=== PATIENT | male | born 1955 | race Caucasian/White ===

== ENCOUNTER 2019-06-15 07:49 | Outpatient (CLI) | payer BC ==
[2019-06-15 08:27] LABS: HB2 TOTAL 14.9 g/dL; HEMOGLOBIN A1C 0.59 g/dL; HEMOGLOBIN A1C % 5.8 % (4.6-6.2)
[2019-06-15 08:28] LABS: ALBUMIN 4.4 g/dL (3.2-5.5); ALBUMIN/GLOBULIN RATIO 1.8 (1.0-2.2); ALKALINE PHOSPHATASE 62 IU/L (42-121); ALT ALANINE AMINOTRANSFERASE 22 IU/L (10-60); AST ASPARTATE AMINOTRANSFERASE 22 IU/L (10-42); BUN - BLOOD UREA NITROGEN 18 mg/dL (6-20); CALCIUM 8.7 mg/dL (8.5-10.3); CARBON DIOXIDE - CO2 27 mmol/L (21-32); CHLORIDE 102 mmol/L (101-111); CHOL/HDL RATIO 4.8 (<5.0); CHOLESTEROL 155 mg/dL; GFR - MDRD 76 (>89); GLUCOSE 114 mg/dL (70-100); HDL CHOLESTEROL 32 mg/dL; LDL CHOLESTEROL,CALCULATED 81 mg/dL; LDL/HDL RATIO 2.5 (<3.6); SODIUM 139 mmol/L (135-145); TOTAL PROTEIN 6.9 g/dL (6.7-8.2); VLDL CHOLESTEROL 42 mg/dL
== END 2019-06-15 07:50 | disposition home or self-care (01) ==
LOC: LAB 07:49
PROVIDERS: ATTEND Internal Medicine
DX: E29.1 Testicular hypofunction (principal); R73.02 Impaired glucose tolerance (oral); E78.5 Hyperlipidemia, unspecified
CPT/HCPCS: 36415; 80053; 80061; 83036; 83721; 84403

== ENCOUNTER 2020-03-01 10:57 | Outpatient (CLI) | payer BC ==
[2020-03-01 11:38] LABS: HB2 TOTAL 16.1 g/dL; HEMOGLOBIN A1C 0.68 g/dL
== END 2020-03-01 10:58 | disposition home or self-care (01) ==
LOC: LAB 10:57
PROVIDERS: ATTEND Internal Medicine
DX: E29.1 Testicular hypofunction (principal); R73.02 Impaired glucose tolerance (oral); Z11.59 Encounter for screening for other viral diseases
CPT/HCPCS: 36415; 83036; 84403

== ENCOUNTER 2020-05-31 13:40 | Outpatient (CLI) | payer BC | END 2020-05-31 13:41 | disposition home or self-care (01) | LOC: LAB 13:40 | PROVIDERS: ATTEND Internal Medicine | DX: E29.1 Testicular hypofunction (principal); Z12.5 Encounter for screening for malignant neoplasm of prostate; N52.9 Male erectile dysfunction, unspecified | CPT/HCPCS: 36415; 84153 ==

== ENCOUNTER 2020-06-14 08:08 | Outpatient (CLI) | payer BC | END 2020-06-14 08:09 | disposition home or self-care (01) | LOC: LAB 08:08 | PROVIDERS: ATTEND Internal Medicine | DX: R53.83 Other fatigue (principal) | CPT/HCPCS: 36415; 82533; 84443 ==

== ENCOUNTER 2020-07-26 10:04 | Outpatient (CLI) | payer BC ==
--- NOTE | 2020-07-26 10:54 | SLEEP CARE CONSULTATION ---
Information from patient questionnaire entered by Halima Mcginnis. I have reviewed and concur with the information entered by Halima Mcginnis. This document represents the service I personally performed and the decisions made by me, Silva Sweeney ARNP. History of Present Illness Service Date and Time: 07/26/2020 1004 Reason for Visit: New patient, Previously diagnosed sleep apnea, sleep apnea on CPAP therapy Chief Complaint: reports: Snoring, Observed pauses in breathing, Frequent awakenings at night. denies: Insomnia, Unrefreshed sleep, Excessive daytime sleepiness, Fatigue Date of Onset: 15 years Usual bedtime: 11 pm Time it takes to fall asleep: 15-20 minutes Snores at night: Yes Observed to quit breathing while asleep: Yes Sleeps alone due to snoring: No Reasons for waking at night: denies: Choking, Snoring, Gasping for air Toss, Turn, or Twitch while sleeping: Yes Recalls having dreams: No Usually gets out of bed at: 7-francis am Feels refreshed in the morning: Yes Morning headache: No Sleepy or fatigued during the day: No Ever fallen asleep while driving: No Takes day naps: No Dreams during day naps: No Prior sleep studies: No Additional HPI information: CHRISTIAN CARRASQUILLO was diagnosed to have unknown, AHI unknown, obstructive sleep apnea-hypopnea syndrome and comes in to establish care today for CPAP therapy. He has been using the CPAP therapy for about 10 years. He states his machine needs to be replaced but [facility] told him he did not have a sleep study on file, so they could not get him a new machine. Thus he is here to establish for care. - Parasomnia Symptoms Ever been unable to move upon waking from sleep: No Walks in sleep: No Talks in sleep: No Ever acted out dreams in sleep: No Ever felt weak in the knees when startled or emotional: No Bothered by creepy, crawly, restless sensations in legs: No Problems with memory or concentration: Yes CPAP Compliance Data - Data Reviewed with Patient Average duration of nightly device use: 8 hours 13 minutes Compliance rate %: 100 Current pressure setting (cmH2O): 4-20 Average residual AHI: 3.9 Subjective Patient concerns: reports: nasal congestion (very little first thing in morning). denies: aerophagia, mask discomfort, air blowing in eyes, mask leak noise, condensation in mask/hose, dry mouth, nose, throat, epistaxis, other Observed to snore while using device: No Current pressure setting perceived as: comfortable On therapy, patient: reports: sleeping better, awakening more refreshed, being more awake and alert during the day, more rested overall. denies: drowsiness while driving Initial [place] Sleepiness Scale score: 12 (in 2019) Past Medical History Past Medical History: reports: Arthritis, Anxiety, Impotence, Depression. denies: Hypertension, Diabetes, Arrythmia, GERD Social History The patient's occupation is a Retired. Patient is and lives in [place]. Have you smoked in the past 12 months: No Cigarettes per day (20/pack): 20 Years of smokin Quit date: 1985 Smoking Pack Years: 20.0 Alcohol use: Yes Alcohol amount and frequency: 1-3 drinks 2-3 times a week Caffeine use: Yes Caffeine amount and frequency: 3 cups Family History Family history of sleep disordered breathing: Yes (daughter treated sleep apnea) Allergies and Home Medications Drug allergies reviewed: Yes (NKDA) Home medication list reviewed: Yes Allergy and home medication list: atorvastatin zoloft low dose aspirin Multivitamin Vit D glucosamine chondrotin Review of Systems Cardiovascular: denies: high blood pressure, irregular heart rate or pulse Respiratory: denies: shortness of breath Gastrointestinal: denies: heartburn Urinary: reports: impotence Neurological: denies: headaches, head trauma Psychiatric: reports: anxiety, depression. denies: claustrophobia Ear/Nose/Throat: reports: wisdom teeth removed. denies: nasal congestion, sinus problems, dry mouth/throat, injury to nose, tonsillectomy Endocrine: denies: thyroid disease Musculoskeletal: reports: joint pain Immunologic: denies: allergies to food or environment Physical Exam Blood Pressure: 118/66 Cuff size: wrist Heart Rate: 66 O2 Saturation: 95 Height: 5 ft 11 in Weight: 250 lb Body Mass Index: 34.8 BMI Classification: Obese Nostrils: patent to airflow Turbinates: normal Mouth and throat: narrow oropharynx Uvula visualization: 50% Mallampati Class II Tonsils: 2+ Neck: normal w/o lymphadenopathy or thyromegaly Heart: regular rate and rhythm Lungs: clear bilaterally Impression and Plan 1. Obstructive Sleep Apnea-Hypopnea Syndrome, unknown, with excellent treatment compliance and good apnea control. On CPAP therapy, the patient has better sleep quality and is more rested overall. He needs to have a sleep study to verify diagnosis ad severity. I will order a HST and we will follow up with him after the study is completed. We can adjust his pressure to reflect what he is using on average and order a new machine at that time. He voiced understanding and agreement with plan. Patient's apnea severity and rationale for treatment to reduce apnea, improve sleep quality and reduce cardiovascular and cerebrovascular events was reviewed. I also reviewed the benefit of consistent device use of CPAP for depression and anxiety. * Continue auto CPAP pressure at 4-20 cmH2O * HST to verify diagnosis and severity * Notify me if snoring with mask or feeling that the pressure is too much or too little * Attempt to lose weight * Call this office if any problems using CPAP * Return for follow up 1-2 weeks after HST completed, or sooner if concerns arise Visit Type: In Office Time Spent with Patient (minutes): 32 Provider Statement: I spent 100% of the Face to Face Visit with the patient with greater than 50% spent counseling the patient and coordination of care.
[2020-07-26 10:55] VITALS: BP 118/66
== END 2020-07-26 10:05 | disposition home or self-care (01) ==
LOC: SC 10:04
PROVIDERS: ATTEND Nurse Practitioner Family
DX: G47.33 Obstructive sleep apnea (adult) (pediatric) (principal); E66.9 Obesity, unspecified; Z68.34 Body mass index [BMI] 34.0-34.9, adult
CPT/HCPCS: 99203; 99212

== ENCOUNTER 2020-08-04 23:30 | Outpatient (CLI) | payer BC | END 2020-08-04 23:59 | LOC: SC 23:30 | PROVIDERS: ATTEND Nurse Practitioner Family | DX: G47.33 Obstructive sleep apnea (adult) (pediatric) (principal); R09.02 Hypoxemia | CPT/HCPCS: 95806 ==

== ENCOUNTER 2020-08-11 09:48 | Outpatient (CLI) | payer BC ==
--- NOTE | 2020-08-11 11:18 | SLEEP CARE CONSULTATION ---
Information from patient questionnaire entered by Halima Mcginnis. I have reviewed and concur with the information entered by Halima Mcginnis. This document represents the service I personally performed and the decisions made by , Silva Sweeney ARNP. History of Present Illness Service Date and Time: 08/11/2020 0948 Initial [place] Sleepiness Scale score: 12 (in 2019) Current [place] Sleepiness Scale score: 10 Additional HPI information: CHRISTIAN CARRASQUILLO returns for follow up and results of the recently performed home sleep study. We verified that he has severe obstructive sleep apnea-hypopnea syndrome with a measured AHI 47.4 and marianne oxygen saturation of 79%. He is in need of a new machine and needed this verification to update his machine. He uses a Wisp mask. His pressure is set at 5-20 cmH2O and he feels the pressure is comfortable. Sleep Study - Results Type of Sleep Study: Home sleep study Prior sleep studies: No Polysomnography/Home Sleep Study results: Physician Impression: The quality of the study is good. The length of the study is adequate (> 240 minutes). Please also see the tabulated and graphic data. 1. Obstructive Sleep Apnea-Hypopnea (ICD-10 G47.33), severe, with an AHI of 47.7 /hr and marianne SaO2 of 79%. During the study, the patient had 320 apneas (317 obstructive, 2 central, 1 mixed) and 107 hypopneas. The longest episode lasted 130.0 seconds. The respiratory events occurred slightly more frequently during supine sleep (supine AHI was 52.1 and non-supine, 25.86). 2. Hypoxemia (ICD-10 R09.02), moderate, with the lowest oxygen saturation of 79 % and 53.8 minutes with SaO2 under 90%. Baseline oxygen saturation was normal (Average oxygen saturation was 93%). Physical Exam Heart Rate: 63 O2 Saturation: 95 Height: 5 ft 11 in Weight: 253 lb Body Mass Index: 35.2 BMI Classification: Obese Impression and Plan 1. Obstructive Sleep Apnea-Hypopnea Syndrome, severe, with lowest oxygen saturation of 79%. This verifies his diagnosis and severity of obstructive sleep apnea and obviously this would be the cause of the patients symptoms of unrefreshed sleep, and excessive daytime sleepiness without CPAP therapy. Positive pressure therapy benefits his depression. He has a CPAP machine that is at least 12 years old and of reasonable use. There are broken buttons on the machine. Thus, the CPAP will be updated. A DWO prescription will be made. Compliance guidelines for new device and follow up discussed. His last compliance report was reviewed and he is using average pressure 12.1 cmH2O and max pressure 13.6 cmH2O. I will adjust his pressure to 10-14 cm H2O to reflect these pressures. He was encouraged to call if the pressure feels too much, too little or he develops aerophagia. He voiced understanding. 2. Hypoxemia, moderate. His marianne oxygen saturation was 79% with his oxygen saturations 53.8 minutes under 90% during the study. His average oxygen satu ration for the night was 93%. He will definitely benefit from continued use of the CPAP to reduce hypoxemia during sleep. * Change auto CPAP pressure to 10-14 cmH2O * Notify me if snoring with mask or feeling that the pressure is too much or too little * Attempt to lose weight * Call this office if any problems using CPAP * Return for follow up in 1-2 months after obtaining new machine, or sooner if concerns arise Counseling Topics: Spare mask, Weight loss health impact Visit Type: In Office Time Spent with Patient (minutes): 15 Provider Statement: I spent 100% of the Face to Face Visit with the patient with greater than 50% spent counseling the patient and coordination of care.
--- OUTSIDE RECORDS SUMMARY | 2020-08-18 00:38 | EXTERNAL MEDICAL SUMMARY RPT | Continuity of Care Document ---
:1955 Demographics Phone Unavailable Preferred Language Bengali Marital Status Unknown Jew Affiliation Unknown Race Unknown Ethnic Group Unknown Author Organization [facility] Address [address] [place] [address] Phone Care Team Providers Name Role Phone MD Unavailable Unavailable FACP Unavailable Unavailable Jarret Unavailable Unavailable Shelbi Unavailable Unavailable Problems date description facility 2020-05-31 00:00:00 [facility] 2020-05-31 13:40 TESTICULAR HYPOFUNCTION [facility] 2020-05-31 13:40 MALE ERECTILE DYSFUNCTION, [facility] UNSPECIFIED 2020-05-31 13:40 ENCOUNTER FOR SCREENING FOR [facility] MALIGNANT NEOPLASM OF PROSTATE 2020-06-02 00:00:00 [facility] 2020-06-02 00:00:00 Little [facility] or [facility]? [facility] 2020-06-02 00:00:00 Feeling down, depressed, or [facility] hopeless? [facility] 2020-06-02 00:00:00 [facility] 2020-06-02 00:00:00 Former smoker [facility] 2020-06-02 00:00:00 Other malaise and fatigue [facility] 2020-06-02 00:00:00 Other [facility] 2020-06-02 00:00:00 Tobacco use and exposure [facility] 2020-06-02 00:00:00 Patient Health Questionnaire 2 [facility] item (PHQ2) total score [facility] 2020-06-02 00:00:00 Tobacco smoking status NHIS [facility] 2020-06-11 00:00:00 [facility]:00:00 CORTISOL, [facility] 2020-06-14 08:08 OTHER FATIGUE [facility] 2020-06-16 00:00:00 Depressive disorder, not [facility] elsewhere classified [facility] 2020-06-16 00:00:00 Major depressive disorder, [facility] single episode, unspecified [facility] 2020-06-16 00:00:00 Tobacco use and exposure [facility] 2020-06-16 00:00:[facility]:00 Tobacco smoking status NHIS [facility] 2020-06-16 00:00:00 [facility] smoker [facility] 2020-07-18 00:00:00 [facility] 2020-07-18 00:00:00 Other sleep apnea [facility] 2020-07-18 00:00:00 Dependence on other enabling [facility] machines and devices [facility] 2020-07-18 00:00:00 Dependence on continuous [facility] positive airway pressure [facility] ventilation 2020-07-18 00:00:00 [facility] 2020-08-04 23:30 OBSTRUCTIVE SLEEP APNEA (ADULT) [facility] (PEDIATRIC) 2020-08-04 23:30 HYPOXEMIA [facility] Allergies date description facility NO KNOWN ENVIRONMENTAL ALLERGIES [facility] CAT HAIR EXTRACT [facility] NO KNOWN ENVIRONMENTAL ALLERGIES [facility] OTHER [facility] HYMENOPTERA ALLERGENIC EXTRACT [facility] NO KNOWN ALLERGIES [facility] IBUPROFEN [facility] NAPROXEN [facility] LATEX [facility] Medications date description facility 2020-06-02 00:00:00 null [facility] 2020-06-02 00:00:00 null [facility] 2020-06-02 00:00:00 null [facility] 2020-06-02 00:00:00 null [facility] 2020-06-02 00:00:00 TADALAFIL [facility] 2020-06-02 00:00:00 TESTOSTERONE [facility] 2020-06-02 00:00:00 TADALAFIL [facility] 2020-06-02 00:00:00 null [facility] 2020-06-02 00:00:00 null [facility] 2020-06-02 00:00:00 null [facility] 2020-06-02 00:00:00 null [facility] 2020-06-02 00:00:00 TADALAFIL [facility] 2020-06-02 00:00:00 TESTOSTERONE [facility] 2020-06-02 00:00:00 TADALAFIL [facility] 2020-06-16 00:00:00 null [facility] 2020-06-16 00:00:00 null [facility] 2020-06-16 00:00:00 SERTRALINE HCL [facility] 2020-06-16 00:00:00 SERTRALINE HCL [facility] Procedures date description facility 2020-05-31 00:00:00 PSA, SCREENING [facility] date description facility 2020-05-31 00:00:00 [facility] date description facility 2020-05-31 00:00:00 PSA, SCREENING [facility] date description facility 2020-05-31 00:00:00 [facility] date description facility 2020-06-11 00:00:00 TSH WITH REFLEX TO FT4 [facility] date description facility 2020-06-11 00:00:00 CORTISOL, AM [facility] date description facility 2020-06-11 00:00:00 [facility] Results Social History date description facility 2020-06-02 00:00:00 Former smoker [facility] date description facility 2020-06-16 00:00:00 Former smoker [facility] Social History date description facility 2020-06-02 00:00:00 Former smoker [facility] date description facility 2020-06-16 00:00:00 Former smoker [facility] date description facility [phone]
== END 2020-08-11 09:49 | disposition home or self-care (01) ==
LOC: SC 09:48
PROVIDERS: ATTEND Nurse Practitioner Family
DX: G47.33 Obstructive sleep apnea (adult) (pediatric) (principal); R09.02 Hypoxemia; E66.9 Obesity, unspecified; Z68.35 Body mass index [BMI] 35.0-35.9, adult
CPT/HCPCS: 99212; 99213

== ENCOUNTER 2020-11-15 13:38 | Day surgery (SDC) | payer BC ==
[2020-11-15] MEDS ORDERED: LACTATED RINGERS 1,000 ML IV ONE ×2 (14:12→16:35)
[2020-11-15] MEDS ORDERED: MIDAZOLAM 2 MG/2 ML VIAL ONE ×3 (15:12→15:34)
[2020-11-15] MEDS ORDERED: fentaNYL 250 MCG/5 ML VIAL ONE (15:13)
[2020-11-15 16:37] VITALS: BP 121/75
== END 2020-11-15 13:39 | disposition home or self-care (01) ==
LOC: SDS 13:38
PROVIDERS: ATTEND Internal Medicine Gastroenterology
PROC: 0DBP8ZX Excision of Rectum, Via Natural or Artificial Opening Endoscopic, Diagnostic (ICD-10-PCS; 2020-11-15)
PROC: 0DBK8ZX Excision of Ascending Colon, Via Natural or Artificial Opening Endoscopic, Diagnostic (ICD-10-PCS; principal; 2020-11-15 14:45)
DX: Z12.11 Encounter for screening for malignant neoplasm of colon (principal); K57.30 Diverticulosis of large intestine without perforation or abscess without bleeding; G47.30 Sleep apnea, unspecified; E78.5 Hyperlipidemia, unspecified; E66.9 Obesity, unspecified; Z68.37 Body mass index [BMI] 37.0-37.9, adult; Z79.82 Long term (current) use of aspirin; Z79.899 Other long term (current) drug therapy; Z87.891 Personal history of nicotine dependence
CPT/HCPCS: 45380; J3010; J7120

== ENCOUNTER 2020-12-09 09:37 | Outpatient (CLI) | payer BC ==
[2020-12-09 09:51] LABS: BASOPHILS # (AUTO) 0.1 10^3/uL (0.0-0.1); BASOPHILS % (AUTO) 0.7 %; EOSINOPHILS # (AUTO) 0.2 10^3/uL (0.0-0.7); EOSINOPHILS % (AUTO) 2.4 %; HCT - HEMATOCRIT 41.7 % (42.0-52.0); HGB - HEMOGLOBIN 13.7 g/dL (14.0-18.0); LYMPHOCYTES # (AUTO) 2.9 10^3/uL (1.5-3.5); LYMPHOCYTES % (AUTO) 37.9 %; MEAN CORPUSCULAR HEMOGLOBIN 30.3 pg (27.0-31.0); MEAN CORPUSCULAR HGB CONC 32.9 g/dL (32.0-36.0); MEAN CORPUSCULAR VOLUME 92.3 fL (80.0-94.0); MEAN PLATELET VOLUME 9.3 fL (7.4-11.4); MONOCYTES # (AUTO) 0.5 10^3/uL (0.0-1.0); MONOCYTES % (AUTO) 6.6 %; NEUTROPHILS # (AUTO) 3.9 10^3/uL (1.5-6.6); NEUTROPHILS % (AUTO) 51.5 %; PLT - PLATELET COUNT 131 10^3/uL (130-450); RED BLOOD COUNT 4.52 10^6/uL (4.70-6.10); RED CELL DISTRIBUTION WIDTH 12.7 % (12.0-15.0); WHITE BLOOD COUNT 7.5 x10^3/uL (4.8-10.8)
== END 2020-12-09 09:38 | disposition home or self-care (01) ==
LOC: LAB 09:37
PROVIDERS: ATTEND Internal Medicine
DX: N41.9 Inflammatory disease of prostate, unspecified (principal); E29.1 Testicular hypofunction
CPT/HCPCS: 36415; 84153; 84403; 85025

== ENCOUNTER 2021-02-11 11:38 | Outpatient (CLI) | payer BC ==
--- NOTE | 2021-02-11 12:24 | SLEEP CARE CONSULTATION ---
Information from patient questionnaire entered by Halima Mcginnis. I have reviewed and concur with the information entered by Halima Mcginnis. This document represents the service I personally performed and the decisions made by , Silva Sweeney ARNP. History of Present Illness Service Date and Time: 02/11/2021 1138 Previous diagnosis: Severe, Obstructive Sleep Apnea-Hypopnea Syndrome AHI: 47.7 (in 2019) Reason for follow up: first compliance after device update Equipment type: CPAP Equipment obtained from: [employer] (getting supplies as needed) Mask style: Nasal (Wisp type mask) Backup mask available: Yes (old mask) Last cushion change: last week Prior sleep studies: Yes Year and Where: [address] [facility] Type of Sleep Study: Home sleep study HPI additional information: CHRISTIAN CARRASQUILLO was diagnosed to have severe, AHI 47.7, obstructive sleep apnea- hypopnea syndrome and returned today for CPAP therapy first compliance after updating device follow-up. CPAP Compliance Data - Data Reviewed with Patient Average duration of nightly device use: 8 hr 24 min Compliance rate %: 100 (last 30)(93.3 initial 30) Current pressure setting (cmH2O): 8-14 Humidity settin Heated hose settin Average residual AHI: 5.9 Average large leak: 16 sec Subjective Patient concerns: reports: air blowing in eyes (occasional due to headgear fit). denies: aerophagia, mask discomfort, mask leak noise, condensation in mask/hose, nasal congestion, dry mouth, nose, throat, epistaxis, other Observed to snore while using device: No Current pressure setting perceived as: too low On therapy, patient: reports: sleeping better, awakening more refreshed, being more awake and alert during the day, more rested overall. denies: drowsiness while driving Initial [place] Sleepiness Scale score: 12 (in 2020) Current [place] Sleepiness Scale score: 10 Allergies and Home Medications Home medication list reviewed: Yes (Escitalopram) Review of Systems Review of systems same as previous: Yes (no changes) Physical Exam Heart Rate: 73 O2 Saturation: 96 Height: 5 ft 10 in Weight: 262 lb Body Mass Index: 37.5 BMI Classification: Obese Impression and Plan 1. Obstructive Sleep Apnea-Hypopnea Syndrome, severe, with excellent treatment compliance and fair apnea control with a minimal elevated residual AHI. On CPAP therapy, the patient has better sleep quality and is more rested overall. The patient feels as if the pressure is too low. He likes the pressure to start at a higher pressure. His residual AHI is also a little elevated. The patients pressure will be changed to autoCPAP 11-14 cmH20 for elevation of residual AHI and air hunger. Patient advised to contact me if pressure change is uncomfortable so that it can be adjusted. Goals for apnea control discussed. I informed patient of the [employer] recall. Patient has not noted any black particles in the water chamber or hose. I advised him that he should stop if he should notice any of these black particles or unusual odor coming from the machine. It is up to him if he wants to continue use of his machine. If he cannot sleep without it or has any gasping or choking during the night without using his CPAP machine. He may also obtain an online filter that can screen out unwanted particles. He needs to go on with the [employer] website and register his machine for the recall. He voiced understanding and agreement with this plan of care. Patient's apnea severity and rationale for treatment to reduce apnea, improve sleep quality and reduce cardiovascular and cerebrovasc ular events was reviewed. I also reviewed the benefit of consistent device use of CPAP for depression and anxiety. * Change auto CPAP pressure to 11-14 cmH2O * Notify me if snoring with mask or feeling that the pressure is too much or too little * Attempt to lose weight * Call this office if any problems using CPAP * Return for follow up in 1 year, or sooner if concerns arise Counseling Topics: Spare mask, Weight loss health impact Visit Type: In Office Time Spent with Patient (minutes): 22 Provider Statement: I spent 100% of the Face to Face Visit with the patient with greater than 50% spent counseling the patient and coordination of care.
== END 2021-02-11 11:39 | disposition home or self-care (01) ==
LOC: SC 11:38
PROVIDERS: ATTEND Nurse Practitioner Family
DX: G47.33 Obstructive sleep apnea (adult) (pediatric) (principal); E66.9 Obesity, unspecified; Z68.37 Body mass index [BMI] 37.0-37.9, adult
CPT/HCPCS: 99212; 99213

== ENCOUNTER 2021-03-10 18:34 | Emergency (ER) | payer BC ==
[2021-03-10 18:44] VITALS: BP 147/65
--- NOTE | 2021-03-10 19:34 | ED Physician Documentation ---
History of Present Illness - Stated complaint Stated Complaint: LT ARM PX - Chief complaint Chief Complaint: Ext Problem - Additonal information Additional information: 65-year-old male presents the emergency department for evaluation of acute left medial forearm pain. He reports that about 2 weeks ago he was throwing some heavy brick and rocks and felt a popping sensation in the medial forearm just distal to the elbow and noted it was quite sore. He did not think much of it but yesterday he was lifting a heavy box or mattress and felt the same popping sensation in his arm and now has soreness and tenseness in his forearm. No feve rs. Patient is right-hand dominant though he plays a guitar with the left hand. Denies any history of previous injury to this elbow or arm. No open sores or lesions. Review of Systems Constitutional: reports: Reviewed and negative Ears: reports: Reviewed and negative Nose: reports: Reviewed and negative Throat: reports: Reviewed and negative Cardiac: reports: Reviewed and negative Respiratory: reports: Reviewed and negative GI: reports: Reviewed and negative Musculoskeletal: reports: Extremity pain (Left elbow) PD PAST MEDICAL HISTORY - Past Medical History Past Medical History: Yes Cardiovascular: High cholesterol Respiratory: Sleep apnea, CPAP use Endocrine/Autoimmune: None GI: None : None HEENT: None Psych: Depression Musculoskeletal: None Derm: None - Past Surgical History Ortho: Shoulder arthroplasty, Carpal Tunnel surgery, Other - Present Medications Home Medications: Ambulatory Orders Medication Instructions Recorded Confirmed Atorvastatin Calcium 40 mg PO DAILY 11/12/20 03/10/21 Escitalopram [Lexapro] 10 mg PO DAILY 11/12/20 03/10/21 - Allergies Allergies/Adverse Reactions: Allergies Allergy/AdvReac Type Severity Reaction Status Date / Time No Known Drug Allergies Allergy Verified 03/10/21 18:44 - Social History Does the pt smoke?: No Smoking Status: Never smoker PD ED PE EXPANDED - Extremities Extremities: Left forearm (Mild tenderness of the left forearm just distal to the elbow of the extensor digitorum muscle. No ecchymosis or swelling. 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 [place] a pop in the elbow 2 weeks ago that was repeated last night when having some heavy lifting. The x-ray shows nonunited apophysis of the medial epicondyle and triceps tendon insertion spurring at the posterior olecranon. This appears to be an old finding. Patient was placed in Tristin bandage and advised close follow-up with his PCP for evaluation of an MRI. Departure - Departure Disposition: 01 Home, Self Care Clinical Impression: Strain of triceps tendon Qualifiers: Encounter type: initial encounter Laterality: left Qualified Code(s): S46.312A - Strain of muscle, fascia and tendon of triceps, left arm, initial encounter Condition: Stable Record reviewed to determine appropriate education?: Yes Comments: Ben the x-ray shows that the medial epicondyle has been pulled away from your humerus. This is causing inflammation of the triceps tendon. This is an x- ray that suggest that this happened a long time ago. You would benefit from having an MRI of the elbow and possible referral to orthopedics for evaluation and treatment of this. Please continue to wear the elbow Tristin wrap. I do recommend Tylenol or ibuprofen for discomfort. If at any point you have worsening pain, fevers redness or concerns of infection return immediately to the ER.
--- NOTE | 2021-03-10 19:52 | XRAY Report ---
PROCEDURE: Elbow 2 View LT INDICATIONS: pop and pain in elbow TECHNIQUE: 2 views of the elbow were acquired. COMPARISON: None FINDINGS: Bones: No fractures or dislocations. There is an old medial at the condyle nonunited apophysis, bes t seen on the frontal projection. 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 No suspicious bony les ions. Soft tissues: No elbow joint effusion. No suspicious soft tissue calcifications. IMPRESSION: No acute trauma found, no effusion identified. 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 Reviewed by: Franki Núñez MD on 03/10/2021 7:51 PM PDT Approved by: Franki Núñez MD on 03/10/2021 7:51 PM PDT Station ID: [id number]
== END 2021-03-10 20:10 | disposition home or self-care (01) ==
LOC: ED 18:34
DX: S56.812A Strain of other muscles, fascia and tendons at forearm level, left arm, initial encounter (principal); X50.0XXA Overexertion from strenuous movement or load, initial encounter
CPT/HCPCS: 99281; 99283

== ENCOUNTER 2021-03-24 08:00 | Outpatient (CLI) | payer BC | END 2021-03-24 23:59 | disposition home or self-care (01) | LOC: LAB.S 08:00 | PROVIDERS: ATTEND Physician Assistant Medical | DX: R07.0 Pain in throat (principal); Z20.822 Contact with and (suspected) exposure to COVID-19 | CPT/HCPCS: 87070 ==

== ENCOUNTER 2021-04-17 09:36 | Outpatient (CLI) | payer BC ==
[2021-04-17 10:45] LABS: BASOPHILS % (AUTO) 0.7 %; EOSINOPHILS # (AUTO) 0.4 10^3/uL (0.0-0.7); EOSINOPHILS % (AUTO) 7.8 %; HGB - HEMOGLOBIN 13.7 g/dL (14.0-18.0); LYMPHOCYTES # (AUTO) 1.3 10^3/uL (1.5-3.5); LYMPHOCYTES % (AUTO) 28.3 %; MEAN CORPUSCULAR HEMOGLOBIN 29.9 pg (27.0-31.0); MEAN CORPUSCULAR HGB CONC 31.9 g/dL (32.0-36.0); MEAN CORPUSCULAR VOLUME 93.9 fL (80.0-94.0); MEAN PLATELET VOLUME 9.8 fL (7.4-11.4); MONOCYTES # (AUTO) 0.3 10^3/uL (0.0-1.0); MONOCYTES % (AUTO) 7.1 %; NEUTROPHILS # (AUTO) 2.5 10^3/uL (1.5-6.6); NEUTROPHILS % (AUTO) 55.9 %; PLT - PLATELET COUNT 123 10^3/uL (130-450); RED BLOOD COUNT 4.58 10^6/uL (4.70-6.10); RED CELL DISTRIBUTION WIDTH 13.4 % (12.0-15.0); WHITE BLOOD COUNT 4.5 x10^3/uL (4.8-10.8)
[2021-04-17 11:04] LABS: ALBUMIN 4.2 g/dL (3.2-5.5); ALBUMIN/GLOBULIN RATIO 1.6 (1.0-2.2); ALKALINE PHOSPHATASE 75 IU/L (42-121); ALT ALANINE AMINOTRANSFERASE 27 IU/L (10-60); AST ASPARTATE AMINOTRANSFERASE 26 IU/L (10-42); BUN - BLOOD UREA NITROGEN 19 mg/dL (6-20); CALCIUM 9.2 mg/dL (8.5-10.3); CARBON DIOXIDE - CO2 27 mmol/L (21-32); CHLORIDE 100 mmol/L (101-111); CHOL/HDL RATIO 4.8 (<5.0); CHOLESTEROL 171 mg/dL; CREATININE 0.8 mg/dL (0.6-1.2); GFR - MDRD 97 (>89); GLUCOSE 113 mg/dL (70-100); HDL CHOLESTEROL 36 mg/dL; LDL CHOLESTEROL,CALCULATED 95 mg/dL; LDL/HDL RATIO 2.6 (<3.6); POTASSIUM 4.4 mmol/L (3.5-5.0); SODIUM 138 mmol/L (135-145); TOTAL PROTEIN 6.8 g/dL (6.7-8.2); TRIGLYCERIDES 200 mg/dL; VLDL CHOLESTEROL 40 mg/dL
== END 2021-04-17 09:37 | disposition home or self-care (01) ==
LOC: LAB 09:36
PROVIDERS: ATTEND Internal Medicine
DX: E78.5 Hyperlipidemia, unspecified (principal); R73.02 Impaired glucose tolerance (oral); E29.1 Testicular hypofunction
CPT/HCPCS: 36415; 80053; 80061; 81599; 82390; 83721; 84155; 84165; 84270; 84402; 84403; 85025

== ENCOUNTER 2021-04-18 09:58 | Outpatient (CLI) | payer BC ==
[2021-04-18 14:19] LABS: BASOPHILS % (AUTO) 0.9 %; EOSINOPHILS # (AUTO) 0.4 10^3/uL (0.0-0.7); EOSINOPHILS % (AUTO) 8.1 %; HCT - HEMATOCRIT 41.6 % (42.0-52.0); HGB - HEMOGLOBIN 13.2 g/dL (14.0-18.0); LYMPHOCYTES # (AUTO) 1.4 10^3/uL (1.5-3.5); LYMPHOCYTES % (AUTO) 28.8 %; MEAN CORPUSCULAR HEMOGLOBIN 29.8 pg (27.0-31.0); MEAN CORPUSCULAR HGB CONC 31.7 g/dL (32.0-36.0); MEAN CORPUSCULAR VOLUME 93.9 fL (80.0-94.0); MEAN PLATELET VOLUME 10.4 fL (7.4-11.4); MONOCYTES # (AUTO) 0.3 10^3/uL (0.0-1.0); MONOCYTES % (AUTO) 5.5 %; NEUTROPHILS # (AUTO) 2.6 10^3/uL (1.5-6.6); NEUTROPHILS % (AUTO) 56.3 %; PLT - PLATELET COUNT 129 10^3/uL (130-450); RED BLOOD COUNT 4.43 10^6/uL (4.70-6.10); RED CELL DISTRIBUTION WIDTH 13.4 % (12.0-15.0); WHITE BLOOD COUNT 4.7 x10^3/uL (4.8-10.8)
[2021-04-18 14:36] LABS: SLIDE REVIEW? Indicated
[2021-04-20 15:37] LABS: ALPHA 1 GLOBULIN 0.3 g/dL (0.2-0.3); ALPHA 2 GLOBULIN 0.7 g/dL (0.5-0.9); BETA 1 GLOBULIN 0.5 g/dL (0.4-0.6); BETA 2 GLOBULIN 0.3 g/dL (0.2-0.5); GAMMA GLOBULIN 0.4 g/dL (0.8-1.7)
[2021-04-23 16:38] LABS: PATHOLOGIST SLIDE COMMENTS SEE SEPARATE REPORT
== END 2021-04-18 09:59 | disposition home or self-care (01) ==
LOC: LAB.S 09:58
PROVIDERS: ATTEND Internal Medicine
DX: D61.818 Other pancytopenia (principal)
CPT/HCPCS: 36415; 81599; 82390; 84155; 84165; 85025; 86334; 86335

== ENCOUNTER 2021-05-28 07:37 | Outpatient (CLI) | payer BC ==
--- NOTE | 2021-05-28 09:42 | Ultrasound Report ---
PROCEDURE: Abdomen Complete INDICATIONS: SPLENOMEGALY TECHNIQUE: Real-time scanning was performed of the abdominal and retroperitoneal organs, with image documentatio n. COMPARISON: None. FINDINGS: Liver: The liver demonstrates increased size. The liver demonstrates moderately increased echogenic ity, which limits ultrasound sensitivity for detection of masses. Gallbladder: No gallstones or significant sludge can be seen. The gallbladder wall does not appear th ickened. There is no specific pericholecystic fluid. The sonographic Santoyo's sign is negative. Biliary ducts: Intrahepatic bile ducts are non-dilated. Extrahepatic bile duct caliber measures 4 m m. Normal is 6-7 mm or less in diameter, or 10 mm or less post-cholecystectomy. Pancreas: The pancreas demonstrates an echogenic appearance, without a focal abnormality. Spleen: The spleen measures at the upper limits of normal for size at 12.6 cm. It demonstrates a hete rogeneous echotexture. No focal splenic lesions are seen. Kidneys: Kidneys are normal in size and echotexture. Right kidney measures 11.9 cm long; left kidne y measures 11.3 cm long. No hydronephrosis or nephrolithiasis. No solid masses, although the left k idney demonstrates a lobulated appearance. Aorta: Visualized aorta is normal in caliber at less than 3 cm. Iliacs: Proximal common iliac arteries are normal in caliber at less than 2.5 cm. IVC: Intrahepatic inferior vena cava is patent. Miscellaneous: No free abdominal fluid. IMPRESSION: The spleen demonstrates size at the upper limits of normal. It demonstrates a heterogeneous appearanc e, without without focal lesions. Enlarged, fatty liver. Incidental note is made of: Echogenic appearing pancreas Lobulated appearing left kidney, without a mass identified Reviewed by: Manan Kingston MD on 05/28/2021 8:41 AM [place] Approved by: Manan Kingston MD on 05/28/2021 8:41 AM [place] Station ID: [id number]
== END 2021-05-28 07:38 | disposition home or self-care (01) ==
LOC: DI 07:37
PROVIDERS: ATTEND Internal Medicine
DX: K76.0 Fatty (change of) liver, not elsewhere classified (principal)

== ENCOUNTER 2022-02-03 12:56 | Outpatient (CLI) | payer BC, MEDICARE ==
[2022-02-03 20:22] LABS: BASOPHILS # (AUTO) 0.1 10^3/uL (0.0-0.1); BASOPHILS % (AUTO) 0.9 %; EOSINOPHILS # (AUTO) 0.2 10^3/uL (0.0-0.7); EOSINOPHILS % (AUTO) 3.8 %; HCT - HEMATOCRIT 42.3 % (42.0-52.0); HGB - HEMOGLOBIN 13.4 g/dL (14.0-18.0); LYMPHOCYTES # (AUTO) 1.5 10^3/uL (1.5-3.5); LYMPHOCYTES % (AUTO) 27.1 %; MEAN CORPUSCULAR HEMOGLOBIN 29.3 pg (27.0-31.0); MEAN CORPUSCULAR HGB CONC 31.7 g/dL (32.0-36.0); MEAN CORPUSCULAR VOLUME 92.6 fL (80.0-94.0); MEAN PLATELET VOLUME 10.5 fL (7.4-11.4); MONOCYTES # (AUTO) 0.4 10^3/uL (0.0-1.0); MONOCYTES % (AUTO) 7.2 %; NEUTROPHILS # (AUTO) 3.4 10^3/uL (1.5-6.6); NEUTROPHILS % (AUTO) 60.5 %; PLT - PLATELET COUNT 135 10^3/uL (130-450); RED BLOOD COUNT 4.57 10^6/uL (4.70-6.10); RED CELL DISTRIBUTION WIDTH 14.3 % (12.0-15.0); WHITE BLOOD COUNT 5.5 x10^3/uL (4.8-10.8)
[2022-02-03 20:50] LABS: ALBUMIN 3.9 g/dL (3.2-5.5); BILIRUBIN,TOTAL 0.6 mg/dL (0.2-1.0); CALCIUM 8.8 mg/dL (8.5-10.3); CREATININE 1.4 mg/dL (0.6-1.2); POTASSIUM 4.2 mmol/L (3.5-5.0); TOTAL PROTEIN 5.9 g/dL (6.7-8.2)
[2022-02-03 21:17] LABS: PSA TOTAL 1.4 ng/mL (0.000-2.000)
[2022-02-04 21:28] LABS: ESTIMATED AVERAGE GLUCOSE 140 mg/dL (70-100); HEMOGLOBIN A1c% 6.5 % (4.27-6.07)
[2022-02-08 15:08] LABS: FREE TESTOSTERONE(DIRECT) 7.7 pg/mL (6.6-18.1)
== END 2022-02-03 12:57 | disposition home or self-care (01) ==
LOC: LAB.S 12:56
PROVIDERS: ATTEND Registered Nurse
DX: R73.02 Impaired glucose tolerance (oral) (principal); R53.83 Other fatigue; E29.1 Testicular hypofunction; N52.9 Male erectile dysfunction, unspecified
CPT/HCPCS: 36415; 80053; 83036; 84153; 84402; 84403; 85025

== ENCOUNTER 2022-06-05 09:37 | Outpatient (CLI) | payer MEDICARE ==
[2022-06-05 10:15] LABS: CHOL/HDL RATIO 4.5 (<5.0); CHOLESTEROL 163 mg/dL; HDL CHOLESTEROL 36 mg/dL; LDL CHOLESTEROL,CALCULATED 97 mg/dL; LDL/HDL RATIO 2.7 (<3.6); TRIGLYCERIDES 151 mg/dL; VLDL CHOLESTEROL 30 mg/dL
== END 2022-06-05 09:38 | disposition home or self-care (01) ==
LOC: LAB 09:37
PROVIDERS: ATTEND Registered Nurse
DX: E78.5 Hyperlipidemia, unspecified (principal)
CPT/HCPCS: 36415; 80061; 83721

== ENCOUNTER 2023-02-27 11:27 | Outpatient (CLI) | payer MEDICARE ==
--- NOTE | 2023-02-27 12:49 | SLEEP CARE CONSULTATION ---
Information from patient questionnaire entered by Jason Ignacio. I have reviewed and concur with the information entered by Jason Ignacio. This document represents the service I personally performed and the decisions made by me, Silva Sweeney ARNP. History of Present Illness Service Date and Time: 02/27/2023 1127 Previous diagnosis: Severe, Obstructive Sleep Apnea-Hypopnea Syndrome AHI: 47.7 (in 2019) Reason for follow up: annual (LAST SEEN 02/2021) Equipment type: CPAP (Dreamstation 2; SD CARD NEEDED) Equipment obtained from: [employer] (getting supplies as needed) Mask style: Nasal (Wisp type mask) Mask brand: Respironics Backup mask available: Yes (old mask) Last cushion change: last week Prior sleep studies: Yes Year and Where: 2019 - [facility] Type of Sleep Study: Home sleep study HPI additional information: CHRISTIAN CARRASQUILLO was diagnosed to have severe, AHI 47.7, obstructive sleep apnea- hypopnea syndrome and returned today for CPAP therapy annual follow-up. Sleep Study - Results Type of Sleep Study: Home sleep study Prior sleep studies: Yes Year and Where: 2019 - [facility] CPAP Compliance Data - Data Reviewed with Patient Average duration of nightly device use: 8 hours 9 minutes Compliance rate %: 95.6 (174/180 days used) Current pressure setting (cmH2O): 10-12 Average residual AHI: 4.1 Central apnea: 1.6 Obstructive apnea: 1.4 Hypopnea: 1.1 Average large leak: 36 secs Compliance data discussion: Once we were talking about his compliance, patient states the information was wrong and that he was using his CPAP more than the data says. Once I got looking at it, it appears that he and his have at some point swapped machines. He is using his 's machine and she is using his. I double checked the machine device number and he is using the one that is assigned to his . The information added for his compliance is his device use. Subjective Missed days of use due to: reports: other (machine making noise, used 's for a couple weeks) Patient concerns: reports: other (machine is noisy in use). denies: aerophagia, mask discomfort, air blowing in eyes, mask leak noise, condensation in mask/hose, nasal congestion, dry mouth, nose, throat, epistaxis Observed to snore while using device: No Current pressure setting perceived as: comfortable On therapy, patient: reports: sleeping better, awakening more refreshed, being more awake and alert during the day, more rested overall. denies: drowsiness while driving Initial [place] Sleepiness Scale score: 12 (in 2019) Current [place] Sleepiness Scale score: 12 (02/27/23) Allergies and Home Medications Known drug allergies: No Drug allergies reviewed: Yes Home medication list reviewed: Yes (Wellbutrin for depression) Allergy and home medication list: Allergies No Known Drug Allergies Allergy (Verified 02/26/23 15:14) Review of Systems Review of systems same as previous: No (New knee 07/27; cataracts 2 months ago) Physical Exam Vital signs obtained and entered by: JASON Katz MA Blood Pressure: 88/48 (LEFT ARM) Cuff size: regular Heart Rate: 56 O2 Saturation: 86 Height: 5 ft 10 in Weight: 230 lb 12.8 oz Body Mass Index: 33.1 BMI Classification: Obese Impression and Plan 1. Obstructive Sleep Apnea-Hypopnea Syndrome, severe, with good treatment compliance and good apnea control. On CPAP therapy, the patient has better sleep quality and is more rested overall. He states there is a noise in the machine he has been using. I discovered that he and his have swapped their machines somehow and he is using her machine. The data did not match to the patient's verbal report and on his therapy report but it did in her therapy report. He is going to switch the machines back and is not sure how long they have been switched. I advised him to call and report issues with the noise of her Dreamstation 2 to [facility] since [place] could not find a problem with the machine but it is still making a loud noise. He voiced understanding. Patient's apnea severity and rationale for treatment to reduce apnea, improve sleep quality and reduce cardiovascular and cerebrovascular events was reviewed. I also reviewed the benefit of consistent device use of CPAP for depression/anxiety. 2. Obesity, unspecified. Currently patients BMI is 33.1. Obesity increases the risk of apnea, CPAP pressure requirements and overall health risks especially cardiovascular and diabetes. Thus patient is advised to lose weight. * Continue auto CPAP pressure at 11-15.5 cmH2O * Update supplies * Notify me if snoring with mask or feeling that the pressure is too much or too little * Attempt to lose weight * Call this office if any problems using CPAP * Return for follow up in 1 year, or sooner if concerns arise Counseling Topics: Spare mask, Weight loss health impact Visit Type: In Office Time Spent with Patient (minutes): 40 Provider Statement: I spent 100% of the Face to Face Visit with the patient with greater than 50% spent counseling the patient and coordination of care.
[2023-02-27 12:50] VITALS: BP 88/48
== END 2023-02-27 11:28 | disposition home or self-care (01) ==
LOC: SC 11:27
PROVIDERS: ATTEND Nurse Practitioner Family
DX: G47.33 Obstructive sleep apnea (adult) (pediatric) (principal); E66.9 Obesity, unspecified; Z68.33 Body mass index [BMI] 33.0-33.9, adult
CPT/HCPCS: 99214; G0463; 99212

== ENCOUNTER 2023-07-24 16:01 | Outpatient (CLI) | payer MEDICARE ==
--- NOTE | 2023-07-24 16:52 | Sleep Patient Instructions ---
Sleep Center Visit Summary - Patient Visit Information Reason for Visit: 5 month follow up - Patient Instructions Additional Instructions: You were here for follow up of CPAP therapy. You will be continued on CPAP therapy with pressure at 11-15.5 cmH2O. You should follow up with sleep care in 12 months. You may contact us sooner for any questions or concerns. - Clinic Information Contact: [facility] [address] [place] [address] [email or web address] T: [phone]
--- NOTE | 2023-07-24 17:01 | SLEEP CARE CONSULTATION ---
Information from patient questionnaire entered by Jason Ignacio. I have reviewed and concur with the information entered by Jason Ignacio. This document represents the service I personally performed and the decisions made by me, Silva Sweeney ARNP. History of Present Illness Service Date and Time: 07/24/2023 1601 Previous diagnosis: Severe, Obstructive Sleep Apnea-Hypopnea Syndrome AHI: 47.7 (in 2019) Reason for follow up: other (5 MONTH F/U) Equipment type: CPAP (Dreamstation 2; SD CARD NEEDED) Equipment obtained from: [employer] (getting supplies as needed) Mask style: Nasal (Wisp type mask) Backup mask available: No Last cushion change: 3 weeks Prior sleep studies: Yes Year and Where: 2019 - [facility] Type of Sleep Study: Home sleep study HPI additional information: CHRISTIAN CARRASQUILLO was diagnosed to have severe, AHI 47.7, obstructive sleep apnea- hypopnea syndrome and returned today with spouse for CPAP therapy 5 month follow-up. Sleep Study - Results Type of Sleep Study: Home sleep study Prior sleep studies: Yes Year and Where: 2019 - [facility] CPAP Compliance Data - Data Reviewed with Patient Average duration of nightly device use: 8 hours 2 minutes Compliance rate %: 96.7 (/30 days used) Current pressure setting (cmH2O): 10-12 Average residual AHI: 4.8 Central apnea: 0.8 Obstructive apnea: 3 Hypopnea: 1 Average large leak: 8 secs Subjective Patient concerns: reports: air blowing in eyes (needs diff size cushion), mask leak noise, dry mouth, nose, throat. denies: aerophagia, mask discomfort, condensation in mask/hose, nasal congestion, epistaxis Observed to snore while using device: Yes (occasionally) Current pressure setting perceived as: comfortable (to low) On therapy, patient: reports: sleeping better, awakening more refreshed, being more awake and alert during the day, more rested overall. denies: drowsiness while driving Initial [place] Sleepiness Scale score: 12 (in 2019) Current [place] Sleepiness Scale score: 12 (07/24/23) Allergies and Home Medications Known drug allergies: No Drug allergies reviewed: Yes Home medication list reviewed: Yes (no changes) Allergy and home medication list: Allergies No Known Drug Allergies Allergy (Verified 07/23/23 10:20) Review of Systems Review of systems same as previous: No (KNEE REPLACEMENT 07/2022) Physical Exam Vital signs obtained and entered by: JASON Katz MA Blood Pressure: 125/66 (LEFT ARM) Cuff size: regular Heart Rate: 66 O2 Saturation: 99 Height: 5 ft 10 in Weight: 224 lb 3.2 oz Body Mass Index: 32.1 BMI Classification: Obese Impression and Plan 1. Obstructive Sleep Apnea-Hypopnea Syndrome, severe, with good treatment com pliance and good apnea control. On CPAP therapy, the patient has better sleep quality and is more rested overall. Patient has significant improvement of their sleep apnea and is satisfied with current CPAP therapy. Patient denies problems with oral dryness, nasal congestion, epistaxis, skin irritation or aerophagia. Patient's apnea severity and rationale for treatment to reduce apnea, improve sleep quality and reduce cardiovascular and cerebrovascular events was reviewed. I also reviewed the benefit of consistent device use of CPAP for depression/anxiety. 2. Obesity, unspecified. Currently patients BMI is 32.1. Obesity increases the risk of apnea, CPAP pressure requirements and overall health risks especially cardiovascular and diabetes. Thus patient is advised to continue to try to lose weight. * Continue auto CPAP pressure at 11-15.5 cmH2O * Update supplies * Notify me if snoring with mask or feeling that the pressure is too much or too little * Attempt to lose weight * Call this office if any problems using CPAP * Return for follow up in 1 year, or sooner if concerns arise Counseling Topics: Spare mask, Weight loss health impact Prescriptions: Device supplies Follow up with Sleep Care in: 1 year Visit Type: In Office Time Spent with Patient (minutes): 20 Provider Statement: I spent 100% of the Face to Face Visit with the patient with greater than 50% spent counseling the patient and coordination of care.
[2023-07-24 17:04] VITALS: BP 125/66; O2SAT 99
== END 2023-07-24 16:02 | disposition home or self-care (01) ==
LOC: SC 16:01
PROVIDERS: ATTEND Nurse Practitioner Family
DX: G47.33 Obstructive sleep apnea (adult) (pediatric) (principal); E66.9 Obesity, unspecified; Z68.32 Body mass index [BMI] 32.0-32.9, adult
CPT/HCPCS: 99213; G0463; 99212

== ENCOUNTER 2023-08-14 10:16 | Outpatient (CLI) | payer MEDICARE ==
[2023-08-14 10:36] LABS: BASOPHILS % (AUTO) 0.5 %; EOSINOPHILS # (AUTO) 0.2 10^3/uL (0.0-0.7); EOSINOPHILS % (AUTO) 5.7 %; HCT - HEMATOCRIT 39.1 % (42.0-52.0); HGB - HEMOGLOBIN 12.1 g/dL (14.0-18.0); LYMPHOCYTES # (AUTO) 0.8 10^3/uL (1.5-3.5); MEAN CORPUSCULAR HEMOGLOBIN 28.5 pg (27.0-31.0); MEAN CORPUSCULAR HGB CONC 30.9 g/dL (32.0-36.0); MEAN CORPUSCULAR VOLUME 92.2 fL (80.0-94.0); MEAN PLATELET VOLUME 9.9 fL (7.4-11.4); MONOCYTES # (AUTO) 0.4 10^3/uL (0.0-1.0); MONOCYTES % (AUTO) 9.2 %; NEUTROPHILS # (AUTO) 2.8 10^3/uL (1.5-6.6); NEUTROPHILS % (AUTO) 66.4 %; PLT - PLATELET COUNT 90 10^3/uL (130-450); RED BLOOD COUNT 4.24 10^6/uL (4.70-6.10); RED CELL DISTRIBUTION WIDTH 14.2 % (12.0-15.0); WHITE BLOOD COUNT 4.2 x10^3/uL (4.8-10.8)
[2023-08-14 10:48] LABS: ALBUMIN 3.9 g/dL (3.2-5.5); ALKALINE PHOSPHATASE 90 IU/L (42-121); ALT ALANINE AMINOTRANSFERASE 28 IU/L (10-60); AST ASPARTATE AMINOTRANSFERASE 29 IU/L (10-42); BILIRUBIN,TOTAL 0.5 mg/dL (0.2-1.0); BUN - BLOOD UREA NITROGEN 16 mg/dL (6-20); CALCIUM 8.8 mg/dL (8.5-10.3); CARBON DIOXIDE - CO2 32 mmol/L (21-32); CHLORIDE 104 mmol/L (101-111); CHOL/HDL RATIO 3.1 (<5.0); CHOLESTEROL 148 mg/dL; CREATININE 0.8 mg/dL (0.6-1.3); GFR - MDRD 96 (>89); GLUCOSE 102 mg/dL (74-104); HDL CHOLESTEROL 47 mg/dL; LDL CHOLESTEROL,CALCULATED 78 mg/dL; LDL/HDL RATIO 1.7 (<3.6); SODIUM 140 mmol/L (135-145); TOTAL PROTEIN 5.9 g/dL (6.4-8.9); TRIGLYCERIDES 114 mg/dL (48-352); VLDL CHOLESTEROL 23 mg/dL
== END 2023-08-14 10:17 | disposition home or self-care (01) ==
LOC: LAB 10:16
PROVIDERS: ATTEND Registered Nurse
DX: E78.5 Hyperlipidemia, unspecified (principal); Z79.899 Other long term (current) drug therapy; Z12.5 Encounter for screening for malignant neoplasm of prostate
CPT/HCPCS: 36415; 80053; 80061; 85025; G0103; 83721; 84153

== ENCOUNTER 2023-10-22 12:31 | Outpatient (CLI) | payer MEDICARE ==
[2023-10-22 15:19] LABS: BASOPHILS % (AUTO) 0.4 %; EOSINOPHILS # (AUTO) 0.2 10^3/uL (0.0-0.7); EOSINOPHILS % (AUTO) 4.1 %; HCT - HEMATOCRIT 39.3 % (42.0-52.0); HGB - HEMOGLOBIN 12.3 g/dL (14.0-18.0); LYMPHOCYTES # (AUTO) 1.1 10^3/uL (1.5-3.5); LYMPHOCYTES % (AUTO) 21.1 %; MEAN CORPUSCULAR HEMOGLOBIN 28.8 pg (27.0-31.0); MEAN CORPUSCULAR HGB CONC 31.3 g/dL (32.0-36.0); MEAN PLATELET VOLUME 11.4 fL (7.4-11.4); MONOCYTES # (AUTO) 0.4 10^3/uL (0.0-1.0); MONOCYTES % (AUTO) 7.2 %; NEUTROPHILS # (AUTO) 3.6 10^3/uL (1.5-6.6); PLT - PLATELET COUNT 121 10^3/uL (130-450); RED BLOOD COUNT 4.27 10^6/uL (4.70-6.10); RED CELL DISTRIBUTION WIDTH 13.8 % (12.0-15.0); WHITE BLOOD COUNT 5.4 x10^3/uL (4.8-10.8)
[2023-10-22 16:00] LABS: ALBUMIN 4.3 g/dL (3.2-5.5); BILIRUBIN,TOTAL 0.6 mg/dL (0.2-1.0); CALCIUM 9.5 mg/dL (8.5-10.3); CREATININE 0.8 mg/dL (0.6-1.3); POTASSIUM 4.3 mmol/L (3.5-4.5); TOTAL PROTEIN 6.4 g/dL (6.4-8.9)
== END 2023-10-22 12:32 | disposition home or self-care (01) ==
LOC: LAB.S 12:31
PROVIDERS: ATTEND Nurse Practitioner
DX: R25.2 Cramp and spasm (principal)
CPT/HCPCS: 36415; 80053; 81599; 82550; 85025; 85379

== ENCOUNTER 2024-03-02 09:28 | Emergency (ER) | payer MEDICARE ==
--- NOTE | 2024-03-02 09:50 | ED Physician Documentation ---
PD HPI BACK PAIN - Stated complaint Stated Complaint: STIFF NECK/BACK, PX - Chief complaint Chief Complaint: General - History obtained from History obtained from: Patient - History of Present Illness Timing - onset: How many days ago (has neck and back pains intermittently. Picked up jugs of water andcrried briefly. No pain at the time. Later developed neck pain and spasm, particulalry left trapezius/side of nekc.) Timing - duration: Days Timing - details: Gradual onset, Still present Location: Mid, Lower, Left Quality: Spasm, Aching Associated symptoms: No: Fever, Weakness, Numbness Review of Systems Constitutional: reports: Myalgias, Fatigue. denies: Fever, Chills Skin: denies: Rash, Lesions, Abrasion (s) Neurologic: denies: Focal weakness, Numbness PD PAST MEDICAL HISTORY - Past Medical History Past Medical History: Yes Cardiovascular: High cholesterol Respiratory: Sleep apnea, CPAP use Endocrine/Autoimmune: None GI: None : None HEENT: None Psych: Depression Musculoskeletal: None Derm: None - Past Surgical History Past Surgical History: Yes Ortho: Shoulder arthroplasty, Carpal Tunnel surgery, Other - Present Medications Home Medications: Ambulatory Orders Medication Instructions Recorded Confirmed Atorvastatin Calcium 40 mg PO DAILY 11/12/20 07/24/23 buPROPion [Wellbutrin Xl] 150 mg PO DAILY 02/27/23 07/24/23 Cyclobenzaprine [Flexeril] 10 mg PO TID PRN #20 tablet 06/03/23 07/24/23 HYDROcod/ACETAM 5/325 [Creswell 5/325] 1 ea PO Q6H PRN #15 tablet 03/02/24 Lidocaine 4 % TP DAILY PRN #10 patch 03/02/24 Meloxicam [Mobic] 7.5 mg PO BID 10 Days #20 tablet 03/02/24 dexAMETHasone [Decadron] 4 mg PO DAILY #5 tablet 03/02/24 methocarbamoL [Robaxin] 500 mg PO Q6H PRN #20 tablet 03/02/24 - Allergies Allergies/Adverse Reactions: Allergies Allergy/AdvReac Type Severity Reaction Status Date / Time opiates AdvReac Unknown Uncoded 03/02/24 09:47 - Social History Does the pt smoke?: No Smoking Status: Never smoker Does the pt drink ETOH?: No Does the pt have substance abuse?: No Substance Use and Type: Marijuana PD ED PE NORMAL - Vitals Vital signs reviewed: Yes - General General: Alert and oriented X 3, No acute distress (appears tyo paula guarding ROM of the neck,w tih left trapezius muscle area most toedner focally. ), Well developed/nourished - Neck Neck: No bony TTP, No adenopathy, Other (tender left neck at trapezius muscle. No rashnor sores.) - Cardiac Cardiac: RRR, No murmur - Respiratory Respiratory: No respiratory distress, Clear bilaterally - Derm Derm: Normal color, Warm and dry - Extremities Extremities: Other (some tender in trapezius area left to the shoulder and suiprascapular area, in muascle distribution. ) - Neuro Neuro: No motor deficit, No sensory deficit, Normal speech Results - Vitals Vitals: Vital Signs - 24 hr 03/02/24 03/02/24 03/02/24 09:42 09:54 11:37 Temperature 36.6 C Heart Rate 57 L 58 L 62 Respiratory 20 16 Rate Blood Pressure 142/74 H 137/73 H O2 Saturation 100 100 95 Oxygen O2 Source Room air - Labs Labs: Laboratory Tests 03/02/24 03/02/24 03/02/24 10:27 10:27 10:27 WBC 5.8 RBC 4.23 L Hgb 12.1 L Hct 38.5 L MCV 91.0 MCH 28.6 MCHC 31.4 L RDW 14.1 Plt Count 97 L MPV 10.9 Neut # (Auto) 4.5 Lymph # (Auto) 0.7 L Summers # (Auto) 0.3 Eos # (Auto) 0.1 Baso # (Auto) 0.0 Absolute Nucleated RBC 0.00 Nucleated RBC % 0.0 ESR 14 Sodium 138 Potassium 4.0 Chloride 104 Carbon Dioxide 29 Anion Gap 5.0 L BUN 13 Creatinine 0.7 Estimated GFR (MDRD) 112 Glucose 109 H Calcium 9.0 Magnesium 1.9 Total Bilirubin 0.6 AST 15 ALT 14 Alkaline Phosphatase 69 Total Creatine Kinase 65 C-Reactive Protein 0.7 H Total Protein 6.1 L Albumin 4.0 Globulin 2.1 Albumin/Globulin Ratio 1.9 Lipase < 10 L Vitamin B12 512 TSH 2.11 PD Medical Decision Making - ED course Complexity details: re-evaluated patient (pt given meds by nursing with reasonably good imrovement. able to move a bit easier and less contrained. ), considered differential (neck muscle pain and spasms/stiffness. No red flags per se. Has tender muscle knot at left trapezius insertion. Can give trigger point injection at the focal muscle spot. This was done with lido and kenalog without problems. ), d/w patient Departure - Departure Disposition: 01 Home, Self Care Clinical Impression: Acute strain of neck muscle, Muscle cramping Condition: Stable Record reviewed to determine appropriate education?: Yes Instructions: ED Spasm Neck No Injury Follow-Up: Andria Ma ARNP [Primary Care Provider] - Prescriptions: dexAMETHasone [Decadron] 4 mg PO DAILY #5 tablet Lidocaine 4 % TP DAILY PRN #10 patch PRN Reason: Pain 1-4 Meloxicam [Mobic] 7.5 mg PO BID 10 Days #20 tablet HYDROcod/ACETAM 5/325 [Creswell 5/325] 1 ea PO Q6H PRN #15 tablet PRN Reason: Pain methocarbamoL [Robaxin] 500 mg PO Q6H PRN #20 tablet PRN Reason: Spasms Comments: The neck pain seems muscular in the distribution of the trapezius muscle. Presume some mild strain with spasms. I would treat this with heat locally and gentle massage. He can do topical lidocaine patches to the main sore area. In addition I would suggest some anti-inflammatories. I wrote for dexamethasone steroid anti-inflammatory for several days followed by meloxicam anti- inflammatory twice daily for another 7 to 10 days. You can also add methocarbamol muscle relaxant to help with stiffness or spasms. This is not as sedating as the other muscle relaxants you have tried and should not have as much side effects. To this add Tylenol/acetaminophen 500 to 650 mg 4 times a day to help with pain. Add hydrocodone/acetaminophen if needed for worse pain. This would be anticipated to be needed just short-term over the few days. Regarding your more general cramps and muscle pains and fatiguing, we did do several blood test here. Your basic blood count and electrolytes and inflammation markers are normal. There is still a couple of results that would be pending and not results right now. In particular the Lyme test. Follow-up with your primary care in the next couple of days to have them track down the lab results. Statin cholesterol medications can cause general muscle aches and cramps. I would suggest holding your atorvastatin cholesterol medicine for 4 to 6 weeks and see if it has a general improvement in your cramps and pains. The anti-inflammatories rest referenced above I wrote for a bit longer than I would for just the neck pain itself in order to try to help with your general other symptoms. I sent your prescriptions to [facility] in [place]. I am prescribing a short course of narcotic pain medication for you. These are potentially dangerous and addictive medications that should be used carefully. These medications may constipate you. Take an [id number] stool softener such as docusate twice daily with plenty of water while taking these medications. If you go 24 hours without a bowel movement, take [id number] MiraLAX, per package instructions. Do not drink or drive while taking these medications. If you received narcotic or sedating medications while in the emergency department do not drive for 24 hours. Store this medication in a safe, secure place and out of reach of children. It is a violation of federal law to give or sell this medication to another person or to use in a manner other than prescribed. The ED will not refill narcotic prescriptions, including prescriptions lost or stolen. You can dispose of unwanted medications at the [facility]'s office or at several pharmacies such as [facility]. Forms: PCP List Discharge Date/Time: 03/02/24 11:38
[2024-03-02] MEDS: TRIAMCINOLONE 40 MG/ML VIAL MC STA (10:26)
[2024-03-02] MEDS: KETOROLAC 30 MG/ML VIAL IM STA (10:26)
[2024-03-02] MEDS: oxyCODONE 5 MG TABLET PO STA (10:27)
[2024-03-02 10:42] LABS: BASOPHILS % (AUTO) 0.5 %; EOSINOPHILS # (AUTO) 0.1 10^3/uL (0.0-0.7); EOSINOPHILS % (AUTO) 2.3 %; HCT - HEMATOCRIT 38.5 % (42.0-52.0); HGB - HEMOGLOBIN 12.1 g/dL (14.0-18.0); LYMPHOCYTES # (AUTO) 0.7 10^3/uL (1.5-3.5); LYMPHOCYTES % (AUTO) 12.7 %; MEAN CORPUSCULAR HEMOGLOBIN 28.6 pg (27.0-31.0); MEAN CORPUSCULAR HGB CONC 31.4 g/dL (32.0-36.0); MEAN PLATELET VOLUME 10.9 fL (7.4-11.4); MONOCYTES # (AUTO) 0.3 10^3/uL (0.0-1.0); MONOCYTES % (AUTO) 5.7 %; NEUTROPHILS # (AUTO) 4.5 10^3/uL (1.5-6.6); NEUTROPHILS % (AUTO) 78.5 %; PLT - PLATELET COUNT 97 10^3/uL (130-450); RED BLOOD COUNT 4.23 10^6/uL (4.70-6.10); RED CELL DISTRIBUTION WIDTH 14.1 % (12.0-15.0); WHITE BLOOD COUNT 5.8 x10^3/uL (4.8-10.8)
[2024-03-02 10:52] LABS: MAGNESIUM 1.9 mg/dL (1.7-2.3)
[2024-03-02 10:58] LABS: ALBUMIN/GLOBULIN RATIO 1.9 (1.0-2.2); ALKALINE PHOSPHATASE 69 IU/L (42-121); ALT ALANINE AMINOTRANSFERASE 14 IU/L (10-60); AST ASPARTATE AMINOTRANSFERASE 15 IU/L (10-42); BILIRUBIN,TOTAL 0.6 mg/dL (0.2-1.0); BUN - BLOOD UREA NITROGEN 13 mg/dL (6-20); CARBON DIOXIDE - CO2 29 mmol/L (21-32); CHLORIDE 104 mmol/L (101-111); CK- CREATINE KINASE 65 IU/L (30-223); CREATININE 0.7 mg/dL (0.6-1.3); CRP - C-REACTIVE PROTEIN 0.7 mg/dL (<0.5); GFR - MDRD 112 (>89); GLUCOSE 109 mg/dL (74-104); SODIUM 138 mmol/L (135-145); TOTAL PROTEIN 6.1 g/dL (6.4-8.9)
[2024-03-02 11:05] LABS: LIPASE < 10 U/L (11-82)
[2024-03-02 11:09] LABS: THYROID STIMULATING HORMONE 2.11 uIU/mL (0.34-5.60)
[2024-03-02 11:44] VITALS: BP 137/73; O2SAT 95
[2024-03-05 07:10] LABS: LYME TOTAL AB CIA Negative (Negative)
== END 2024-03-02 11:38 | disposition home or self-care (01) ==
LOC: ED 09:28
DX: S16.1XXA Strain of muscle, fascia and tendon at neck level, initial encounter (principal); X50.0XXA Overexertion from strenuous movement or load, initial encounter; R25.2 Cramp and spasm; E78.00 Pure hypercholesterolemia, unspecified; G47.30 Sleep apnea, unspecified
CPT/HCPCS: 20552; 36415; 80053; 82550; 82607; 83690; 83735; 84443; 85025; 85651; 86140; 86618; 99283

== ENCOUNTER 2024-03-03 08:00 | Outpatient (CLI) | payer MEDICARE ==
--- NOTE | 2024-03-03 16:11 | XRAY Report ---
PROCEDURE: Cervical Spine 2-3V INDICATIONS: NECK AND BACK PAIN TECHNIQUE: 4 view(s) of the cervical spine were acquired. COMPARISON: None. FINDINGS: Bones: No fractures or dislocations to the C7 level. The lateral masses of C1 appear intact on the odontoid view. No suspicious bony lesions. Soft tissues: No prevertebral soft tissue swelling. IMPRESSION: No displaced fracture or traumatic subluxation. Reviewed by: Anand Anna MD on 03/03/2024 4:10 PM PDT Approved by: Anand Anna MD on 03/03/2024 4:10 PM PDT Station ID: [id number]
== END 2024-03-03 23:59 | disposition home or self-care (01) ==
LOC: DI.S 08:00
PROVIDERS: ATTEND Emergency Medicine
DX: M54.2 Cervicalgia (principal)